=== PATIENT | male | born 1980 | race Caucasian/White ===

== ENCOUNTER → 2018-01-21 | Outpatient (CLI) | payer BC ==
--- NOTE | 2018-01-21 23:21 | CT ---
EXAMINATION TYPE: CT abdomen pelvis wo con DATE OF EXAM: 01/21/2018 COMPARISON: None HISTORY: 37-year-old male Hematuria and some back pain x 5 months on and off. CT DLP: 568 mGycm. Automated exposure control for dose reduction was used. TECHNIQUE: Contiguous axial scanning of the abdomen and pelvis without IV contrast. Coronal and sagit isac reconstructions performed. FINDINGS: Heart normal size without pericardial effusion. Lung bases clear without pleural effusion. Noncontrast appearance of the liver, gallbladder, adrenal glands, spleen, and pancreas appear within normal limits. Punctate 2 mm and 3 mm calculi in the left kidney. There is also a blush of density in the region of the bilateral medullary pyramids. No hydronephrosis. No dilated small bowel, free fluid, or free air. No mesenteric or retroperitoneal lymphadenopathy mark ntified. Unable to clearly delineate the appendix. Mild to moderate overall central burden particularly on the right. Letter nondistended. No abnormal fluid collection in the pelvis or pelvic lymphadenopathy seen. Bones: S-shaped scoliosis. IMPRESSION: 1. Blush of calcific density in the bilateral renal medullary pyramid regions. Findings could repres ent concentrated urinary salts or other etiology such as early medullary sponge kidney. 2. A couple punctate, nonobstructive 2 and 3 mm calculi in the left kidney.
== END | disposition home or self-care (01) ==
LOC: RADCTMAIN 17:58
PROVIDERS: ATTEND Family Medicine
DX: N20.0 Calculus of kidney (principal)
CPT/HCPCS: 74176

== ENCOUNTER → 2019-01-07 | Outpatient (CLI) | payer BC ==
--- NOTE | 2019-01-07 15:02 | XR ---
EXAMINATION TYPE: XR KUB DATE OF EXAM: 01/07/2019 2:33 PM CLINICAL HISTORY: Frequent urination. Abdominal pain. History of nephrolithiasis. TECHNIQUE: Single supine KUB image of the abdomen is obtained. COMPARISON: None. FINDINGS: There is a punctate 2 mm calculus overlying the left renal shadow and 2 calculi at the leve l of L4 measuring approximately 3 mm and could be located within bowel or the left proximal ureter. N o calculi overlie the right renal shadow. Visualized portions of the lung bases are well aerated. Lev oscoliosis of the lumbar spine is seen. No dilated large or small bowel. IMPRESSION: There is a 2 mm left renal calculus and 2 additional calculi that could either be within the inferior pole of the elongated kidney, overlying bowel, or within the left proximal ureter. Ultra sound could assess for hydronephrosis.
== END | disposition home or self-care (01) ==
LOC: RADXRWHC 14:18
PROVIDERS: ATTEND Urology
DX: N20.0 Calculus of kidney (principal)
CPT/HCPCS: 74018

== ENCOUNTER → 2019-01-26 | Outpatient (CLI) | payer BC ==
--- NOTE | 2019-01-26 11:31 | XR ---
EXAMINATION TYPE: XR KUB DATE OF EXAM: 01/26/2019 10:16 AM CLINICAL HISTORY: Evaluation of left-sided nephrolithiasis. TECHNIQUE: Single supine KUB image of the abdomen is obtained. COMPARISON: 01/07/2019. FINDINGS: There is a punctate 2 mm calculus overlying the left renal shadow. The previously seen calc yuni along the course of the left ureter are no longer visualized. No new calcifications are seen in t he pelvis. No new right-sided calcifications are present. Levoscoliosis of the thoracolumbar spine is seen. No dilated large or small bowel. Lung bases are well aerated. IMPRESSION: Left-sided calculi that were either within overlying bowel or the left proximal ureter ar e no longer seen. The 2 mm calculus overlying the left renal shadow does remain.
== END | disposition home or self-care (01) ==
LOC: LABWHC1 09:55
PROVIDERS: ATTEND Urology
DX: N20.1 Calculus of ureter (principal)
CPT/HCPCS: 74018

== ENCOUNTER → 2019-04-03 | Outpatient (CLI) | payer BC ==
--- NOTE | 2019-04-03 13:34 | XR ---
EXAMINATION TYPE: XR KUB DATE OF EXAM: 04/03/2019 12:08 PM CLINICAL HISTORY: Follow-up for left-sided nephrolithiasis. TECHNIQUE: Single supine KUB image of the abdomen is obtained. COMPARISON: None. FINDINGS: There is an unchanged 2 mm calculus overlying the left renal shadow. Faint possible 3 mm ca lculus now overlies the right renal shadow. Levoscoliosis of lumbar spine is seen. No dilated bowel. No new calculi in the pelvis. Osseous structures appear intact. Lung bases are well aerated. IMPRESSION: Stable 2 mm left renal calculus and probable new faint 3 mm right renal calculus.
== END | disposition home or self-care (01) ==
LOC: RADXRMAIN 11:49
PROVIDERS: ATTEND Urology
DX: N20.0 Calculus of kidney (principal)
CPT/HCPCS: 74018

== ENCOUNTER → 2019-12-07 | Outpatient (CLI) | payer BC ==
--- NOTE | 2019-12-07 15:00 | XR ---
EXAMINATION TYPE: XR KUB DATE OF EXAM: 12/07/2019 2:54 PM CLINICAL HISTORY: History of renal stones with lower abdominal and pelvic pain. TECHNIQUE: Two supine KUB images of the abdomen are obtained. COMPARISON: CT abdomen and pelvis January 21, 2018 and abdominal x-ray April 03, 2019. FINDINGS: Stable 2 to 3 mm lateral midpole left renal calculus. No additional nephrolithiasis clearly seen. Underlying levoconvex scoliosis redemonstrated. Lung bases remain clear. Overall positive bowel gas. Visualized gas seen in nondistended small and large bowel loops. IMPRESSION: Stable 2 to 3 mm nonobstructing lateral mid pole left renal calculus.
== END | disposition home or self-care (01) ==
LOC: RADXRMAIN 14:39
PROVIDERS: ATTEND Urology
DX: N20.0 Calculus of kidney (principal)
CPT/HCPCS: 74018

== ENCOUNTER → 2023-01-16 | Day surgery (SDC) | payer BC ==
[2023-01-11 15:33] VITALS: BMI 26.1
[~2023-01-16] MED LIST: LIDOCAINE 1% (10MG/ML) FOR IV START INTRADERMA ONE; LIDOCAINE 1% (10MG/ML) FOR IV START INTRADERMA PRN; PROPOFOL 10 MG/ML 20 ML VIAL IV ONE
[2023-01-16] MEDS: LACTATED RINGERS 1,000 ML IV SCH ×2 (13:24→13:39)
[2023-01-16 13:25] VITALS: TEMP 97.8
--- NOTE | 2023-01-16 13:55 | P.PCN ---
Date of Procedure: 01/16/23 Procedure(s) Performed: BRIEF HISTORY: Patient is a 42-year-old pleasant male scheduled for an elective colonoscopy as a part of screening for colon cancer and family history of colon cancer. His dad was diagnosed with colon cancer at age 53. PROCEDURE PERFORMED: Colonoscopy. PREOPERATIVE DIAGNOSIS: Screening for colon cancer and family history of colon cancer. IV sedation per Anesthesia. PROCEDURE: After informed consent was obtained, the patient, was brought into the endoscopy unit. IV sedation was administered by Anesthesia under continuous monitoring. Digital rectal examination was normal. Initially the Olympus CF-160 flexible video colonoscope was then inserted in the rectum, gradually advanced into the cecum without any difficulty. Careful examination was performed as the scope was gradually being withdrawn. Ileocecal valve and the appendiceal orifice were visualized and appeared normal. Prep was excellent. Mucosa of the cecum, ascending colon, transverse colon, descending colon, sigmoid colon, and rectum appeared normal. Retroflexion was performed in the rectum and no lesions were seen. The patient tolerated the procedure well. IMPRESSION: Normal-appearing colon from rectum to cecum with no evidence of colorectal neoplasia. RECOMMENDATIONS: Findings of this examination were discussed with the patient as well as his family. He was advised to have a repeat screening colonoscopy in 5 years because of family history of colon cancer.
[2023-01-16 14:02] VITALS: RESP 14
[2023-01-16 14:17] VITALS: BP 122/81; PULSE 81
== END ==
LOC: ORWHC2ENDO 12:23
PROVIDERS: ATTEND Internal Medicine Gastroenterology
DX: Z12.11 Encounter for screening for malignant neoplasm of colon (principal); Z80.0 Family history of malignant neoplasm of digestive organs; Z88.2 Allergy status to sulfonamides; F17.200 Nicotine dependence, unspecified, uncomplicated
CPT/HCPCS: 45378; J2704; G0121

== ENCOUNTER → 2023-06-20 | Outpatient (CLI) | payer BC ==
--- NOTE | 2023-06-20 15:39 | CT ---
EXAMINATION: CT ABDOMEN AND PELVIS WITHOUT IV CONTRAST DATE OF EXAMINATION: 06/20/2023. COMPARISON: None available. INDICATION: Left flank pain for one month. PROCEDURE: Axial CT of the abdomen and pelvis was performed with sagittal and coronal reformatted i mages without contrast enhancement. The exam is limited because some types of pathology may not be ad equately demonstrated due to lack of contrast enhancement. CT dose lowering techniques were used, to include: automated exposure control, adjustment for patient size, and/or use of iterative reconstruct ion. FINDINGS: LOWER CHEST : The visualized lung bases are clear. There are no pleural or pericardial effusions. ABDOMEN: Liver and Biliary system: Normal. Adrenal glands: Normal. Kidneys and ureters: There are no renal stones or hydronephrosis. No ureteral stones are present.. Spleen: Normal. Pancreas: Normal. Gallbladder: Normal. Lymph nodes, Peritoneum and mesentery: There is no mesenteric or retroperitoneal lymphadenopathy. Gastrointestinal tract: There are no dilated loops of bowel or free intraperitoneal air. . The appe ndix is normal. Aorta/IVC: No aortic aneurysm.. IVC normal. Abdominal wall: Normal. PELVIS: Fluid: There is no free fluid in the pelvis. Lymph Nodes: There is no pelvic or inguinal lymphadenopathy.. Urinary bladder: Normal. BONES: There are no osseous destructive lesions.. ADDITIONAL SIGNIFICANT FINDINGS: None. IMPRESSION: 1. No renal stones or hydronephrosis.. 2. No bowel obstruction or appendicitis.
== END | disposition home or self-care (01) ==
LOC: RADCTMAIN 14:55
PROVIDERS: ATTEND Urology
DX: N20.1 Calculus of ureter (principal); R10.9 Unspecified abdominal pain
CPT/HCPCS: 74176